=== PATIENT | male | born 1955 | race Caucasian/White ===

== ENCOUNTER → 2023-03-16 11:03 | Outpatient (BNVA) | payer MEDICARE, SELFPAY | PROVIDERS: PCP Hospitalist; Visit Provider Physician Assistant ==

== ENCOUNTER 2023-09-05 14:08 | Emergency (ER) | payer MEDICARE, SELFPAY ==
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
[2023-09-05 14:17] VITALS: BP 156/88; PULSE 74; O2SAT 98
[2023-09-05 14:20] VITALS: BP 168/74; PULSE 64; RESP 18; TEMP 36.6; O2SAT 99; BMI 31.6
[2023-09-05 14:23] VITALS: BP 168/74; PULSE 63; RESP 18; TEMP 36.7; O2SAT 99
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
--- NOTE | 2023-09-05 16:47 | PC.NURSE ---
called [facility] to inquire about pt's status as he has a discharge order. finding out transportation. pt given snacks. no distress. no sling per kai hooks.
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
--- NOTE | 2023-09-05 16:55 | PC.NURSE ---
report given to [facility] on phone
[2023-09-05 17:20] VITALS: BP 160/85; PULSE 74; RESP 20; TEMP 36.6; O2SAT 99
--- NOTE | 2023-09-05 18:14 | PC.NURSE ---
declined pain med. awaiting ambulance. checked in again w front office secretary- pending arrival still
[2023-09-05 19:00] VITALS: BP 160/78; PULSE 80; RESP 18; TEMP 36.6; O2SAT 98
== END 2023-09-05 19:00 | disposition home or self-care (01) ==
PROVIDERS: Emergency Provider Student in an Organized Health Care Education/Training Program
DX: S59.901A Unspecified injury of right elbow, initial encounter (principal); M79.641 Pain in right hand; M25.521 Pain in right elbow; Y04.2XXA Assault by strike against or bumped into by another person, initial encounter; Y93.9 Activity, unspecified; Y92.9 Unspecified place or not applicable; Y99.8 Other external cause status
CPT/HCPCS: 73030; 73070; 73110; 73130; 99283; 99284